=== PATIENT | female | born 1990 | race Caucasian/White ===

== ENCOUNTER 2019-12-31 12:00 | Inpatient (IN) ==
[2019-12-31] MEDS ORDERED: Metoclopramide 10 MG/2 ML VIAL IVP PRN (12:21)
[2019-12-31] MEDS ORDERED: Naloxone 0.4 MG/ML INJ IVP PRN (12:21)
[2019-12-31] MEDS ORDERED: Lidocaine 1% 20 ML MDV INFILT PRN (12:21)
[2019-12-31] MEDS ORDERED: Azithromycin 500 MG in 0.9 % Sodium Chloride 250 ML IVPB ONE (12:21)
[2019-12-31] MEDS ORDERED: *HR* FentaNYL (PF) 100 MCG/2 ML VIAL IVP PRN (12:21)
[2019-12-31] MEDS ORDERED: Famotidine 20 MG/2 ML VIAL IVP PRN (12:21)
[2019-12-31] MEDS ORDERED: Oxytocin 20 units/ LR 1000 mL 20 UNIT/1,000 ML BAG IVC SCH (12:30)
[2019-12-31 13:15] LABS: Basophils % 0.2 %; Eosinophils # 0.1 K/mcL (0.0-0.6); Eosinophils % 0.8 %; Hematocrit 37.5 % (35.3-44.9); Hemoglobin 12.2 g/dL (11.5-15.4); Immature Granulocytes % 0.8 % (0-4); Lymphocytes # 1.6 K/mcL (0.6-4.6); Lymphocytes % 19.2 %; Mean Corpuscular HGB Conc 32.5 g/dL (31.6-35.5); Mean Corpuscular Hemoglobin 28.6 pg (28.0-33.3); Mean Platelet Volume 10.3 fL (9.4-12.4); Monocytes # 0.9 K/mcL (0.0-1.3); Monocytes % 10.8 %; Neutrophils # 5.8 K/mcL (1.6-8.9); Platelet Count 234 K/mcL (140-400); Red Blood Count 4.26 M/mcL (3.82-4.97); Segmented Neutrophils % 68.2 %; White Blood Count 8.5 K/mcL (4.3-11.1)
[2019-12-31 13:27] LABS: Amphetamine Screen,Urine Negative ng/mL (Cutoff=1000); Barbiturate Screen,Urine Negative ng/mL (Cutoff=200); Benzodiazepines Screen,Urine Negative ng/mL (Cutoff=200); Cannabinoid Screen,Urine Negative ng/mL (Cutoff = 50); Cocaine Screen,Urine Negative ng/mL (Cutoff= 300); Opiate Screen,Urine Negative ng/mL (Cutoff=300); Phencyclidine Screen,Urine Negative ng/mL (Cutoff=25)
[2019-12-31] MEDS: Ringers Solution, Lactated 1,000 ML IVC SCH ×2 (13:35→14:43)
[2019-12-31] MEDS ORDERED: EPHEDrine 50 MG/ML VIAL IVP PRN (14:03)
[2019-12-31] MEDS ORDERED: Bupivacaine-MPF 0.25% 10 ML VIAL EP ONE (14:03)
[2019-12-31] MEDS ORDERED: *HR* FentaNYL (PF) 100 MCG/2 ML VIAL EP ONE (14:03)
[2019-12-31] MEDS ORDERED: Epidural Premix (fent/bupiv) 110 ML EP ONE (14:08)
[2019-12-31] MEDS ORDERED: Epidural Premix (fent/bupiv) 110 ML EP SCH (14:15)
[2019-12-31] MEDS: Ondansetron 4 MG/2 ML VIAL IVP PRN ×2 (15:40→23:41)
[2020-01-01] MEDS ORDERED: Lidocaine/EPI 1:200k 2% PF 20 ML VIAL ONE (00:31)
[2020-01-01] MEDS ORDERED: *HR* FentaNYL (PF) 100 MCG/2 ML VIAL ONE (01:20)
[2020-01-01] MEDS ORDERED: Ringers Solution, Lactated 1,000 ML ONE (01:23)
[2020-01-01] MEDS ORDERED: Ondansetron 4 MG/2 ML VIAL ONE (01:23)
[2020-01-01] MEDS ORDERED: *HR* Oxytocin 10 UNIT/ML VIAL IM ONE (01:27)
[2020-01-01] MEDS ORDERED: *HR* Morphine Sulfate/PF 10 MG/10 ML AMPUL ONE (01:45)
[2020-01-01] MEDS ORDERED: *HR* Promethazine 25 MG/ML VIAL IVP PRN (01:52)
[2020-01-01] MEDS ORDERED: Acetaminophen IV 1,000 MG/100 ML INFUS..BTL IVPB ONE (01:52)
[2020-01-01] MEDS ORDERED: Naloxone 0.4 MG/ML INJ IVP PRN (01:52)
[2020-01-01] MEDS ORDERED: *HR* HYDROmorphone PF 0.5 MG/0.5 ML SYRINGE IVP PRN (01:52)
[2020-01-01] MEDS ORDERED: Simethicone 80 MG TAB.CHEW PO PRN (04:36)
[2020-01-01] MEDS ORDERED: Ondansetron 4 MG/2 ML VIAL IVP PRN (04:36)
[2020-01-01] MEDS ORDERED: Metoclopramide 10 MG/2 ML VIAL IVP PRN (04:36)
[2020-01-01] MEDS ORDERED: Oxytocin 20 units/ LR 1000 mL 20 UNIT/1,000 ML BAG IVC SCH (04:36)
[2020-01-01] MEDS ORDERED: Azithromycin 1,000 MG in 0.9 % Sodium Chloride 250 ML IVPB ONE (04:36)
[2020-01-01] MEDS ORDERED: Sennosides 8.6 MG TABLET PO PRN (04:36)
[2020-01-01] MEDS: *HR* OxyCODONE/APAP 5/325 TABLET PO PRN ×4 (05:33→23:07)
[2020-01-01] MEDS: cefOXitin 2,000 MG in Water for inj. (sterile) 20 ML IVP SCH ×3 (07:55→23:51)
[2020-01-01] MEDS: MetroNIDAZOLE 500 MG/100 ML 500 MG/100 ML BAG IVPB SCH ×3 (07:56→23:52)
[2020-01-01] MEDS: Ibuprofen 600 MG TABLET PO PRN ×2 (09:49→20:09)
[2020-01-01] MEDS: Ringers Solution, Lactated 1,000 ML IVC SCH (14:34)
[2020-01-02] MEDS: *HR* OxyCODONE/APAP 5/325 TABLET PO PRN ×3 (07:32→19:44)
[2020-01-02] MEDS: MetroNIDAZOLE 500 MG/100 ML 500 MG/100 ML BAG IVPB SCH (07:32)
[2020-01-02] MEDS: Prenatal Vit/FA 1 EACH TABLET PO SCH (07:32)
[2020-01-02 08:08] LABS: Basophils # 0.1 K/mcL (0.0-0.2); Basophils % 0.5 %; Eosinophils # 0.2 K/mcL (0.0-0.6); Eosinophils % 1.6 %; Immature Granulocytes % 0.7 % (0-4); Lymphocytes # 1.3 K/mcL (0.6-4.6); Mean Corpuscular HGB Conc 32.3 g/dL (31.6-35.5); Mean Corpuscular Hemoglobin 29.3 pg (28.0-33.3); Mean Corpuscular Volume 90.6 fL (83.0-100.0); Mean Platelet Volume 10.4 fL (9.4-12.4); Monocytes % 7.9 %; Neutrophils # 9.5 K/mcL (1.6-8.9); Platelet Count 220 K/mcL (140-400); Red Blood Count 3.31 M/mcL (3.82-4.97); Red Cell Distribution Width 14.1 % (11.5-14.5); Segmented Neutrophils % 78.3 %; White Blood Count 12.2 K/mcL (4.3-11.1)
[2020-01-02 08:09] LABS: Hemoglobin 9.7 g/dL (11.5-15.4)
[2020-01-02] MEDS: Ibuprofen 600 MG TABLET PO PRN ×2 (09:39→16:06)
[2020-01-03] MEDS: *HR* OxyCODONE/APAP 5/325 TABLET PO PRN ×2 (01:42→09:26)
[2020-01-03] MEDS: Ibuprofen 600 MG TABLET PO PRN (07:37)
[2020-01-03] MEDS: Prenatal Vit/FA 1 EACH TABLET PO SCH (07:38)
[2020-01-03 07:44] VITALS: BP 125/82
== END 2020-01-03 11:15 | disposition home or self-care (01) ==
LOC: 1NENULAB 12:12 → 1NENUOBS 01-01 04:48
PROVIDERS: ADMIT Obstetrics & Gynecology; ATTEND Obstetrics & Gynecology

== ENCOUNTER → 2021-07-20 19:19 | Observation (INO) | END | disposition home or self-care (01) | LOC: 1NENULAB | PROVIDERS: ADMIT Obstetrics & Gynecology; ATTEND Obstetrics & Gynecology ==

== ENCOUNTER 2021-07-24 05:07 | Inpatient (IN) ==
[2021-07-24] MEDS ORDERED: CeFAZolin 2,000 MG/120 ML BAG IVPB ONE (05:31)
[2021-07-24] MEDS ORDERED: Oxytocin 20 units/ LR 1000 mL 20 UNIT/1,000 ML BAG IVC ONE (05:31)
[2021-07-24] MEDS ORDERED: Azithromycin 500 MG in 0.9 % Sodium Chloride 250 ML IVPB PRN (05:31)
[2021-07-24] MEDS ORDERED: Famotidine 20 MG/2 ML VIAL IVP ONE (05:31)
[2021-07-24] MEDS ORDERED: Metoclopramide 10 MG/2 ML VIAL IVP ONE (05:31)
[2021-07-24] MEDS ORDERED: Ringers Solution, Lactated 1,000 ML IVC ONE (05:31)
[2021-07-24] MEDS ORDERED: Oxytocin 20 units/ LR 1000 mL 20 UNIT/1,000 ML BAG IVC SCH ×3 (05:45→11:27)
[2021-07-24] MEDS ORDERED: Ringers Solution, Lactated 1,000 ML IVC SCH ×2 (05:45→11:27)
[2021-07-24 05:54] LABS: Basophils % 0.5 %; Eosinophils # 0.1 K/mcL (0.0-0.6); Eosinophils % 1.4 %; Hematocrit 36.3 % (35.3-44.9); Hemoglobin 11.7 g/dL (11.5-15.4); Immature Granulocytes % 0.8 % (0-4); Lymphocytes # 1.7 K/mcL (0.6-4.6); Lymphocytes % 19.4 %; Mean Corpuscular HGB Conc 32.2 g/dL (31.6-35.5); Mean Corpuscular Hemoglobin 28.5 pg (28.0-33.3); Mean Corpuscular Volume 88.5 fL (83.0-100.0); Monocytes # 0.8 K/mcL (0.0-1.3); Monocytes % 9.8 %; Neutrophils # 5.8 K/mcL (1.6-8.9); Platelet Count 190 K/mcL (140-400); Red Cell Distribution Width 14.4 % (11.5-14.5); Segmented Neutrophils % 68.1 %; White Blood Count 8.5 K/mcL (4.3-11.1)
[2021-07-24 06:31] LABS: Influenza A PCR Negative (Negative); Influenza B PCR Negative (Negative); Resp. Syncytial Virus PCR Negative (Negative)
[2021-07-24 06:33] LABS: SARS-CoV-2 by PCR (In House) Negative (Negative)
[2021-07-24] MEDS ORDERED: *HR* FentaNYL (PF) 100 MCG/2 ML VIAL ONE (07:29)
[2021-07-24] MEDS ORDERED: *HR* Morphine Sulfate/PF 10 MG/10 ML AMPUL ONE (07:29)
[2021-07-24] MEDS ORDERED: EPHEDrine 50 MG/ML VIAL ONE (07:31)
[2021-07-24] MEDS ORDERED: Acetaminophen IV 1,000 MG/100 ML BAG IVPB ONE (07:32)
[2021-07-24] MEDS ORDERED: Ketorolac 30 MG/ML VIAL ONE (07:32)
[2021-07-24] MEDS ORDERED: Ondansetron 4 MG/2 ML VIAL ONE (07:32)
[2021-07-24] MEDS ORDERED: Naloxone 0.4 MG/ML INJ IVP PRN (07:46)
[2021-07-24] MEDS ORDERED: Ondansetron 4 MG/2 ML VIAL IVP PRN ×2 (07:46→11:27)
[2021-07-24] MEDS ORDERED: *HR* FentaNYL (PF) 100 MCG/2 ML VIAL IVP PRN (07:46)
[2021-07-24 08:43] LABS: Amphetamine Screen,Urine Negative ng/mL (Cutoff=1000); Barbiturate Screen,Urine Negative ng/mL (Cutoff=200); Benzodiazepines Screen,Urine Negative ng/mL (Cutoff=200); Cannabinoid Screen,Urine Negative ng/mL (Cutoff = 50); Cocaine Screen,Urine Negative ng/mL (Cutoff= 300); Opiate Screen,Urine Negative ng/mL (Cutoff=300); Phencyclidine Screen,Urine Negative ng/mL (Cutoff=25)
[2021-07-24] MEDS ORDERED: Simethicone 80 MG TAB.CHEW PO PRN (11:27)
[2021-07-24] MEDS ORDERED: NON-FORMULARY MEDICATION 1 EACH EACH (Prenat 115/Iron Fum/Folic/Dss [Prenatal 19 Tablet] 1 PO SCH (11:27)
[2021-07-24] MEDS ORDERED: Metoclopramide 10 MG/2 ML VIAL IVP PRN (11:27)
[2021-07-24] MEDS ORDERED: Rho Immune Globulin 1,500 UNIT SYRINGE IM ONE (11:27)
[2021-07-24] MEDS ORDERED: Prenatal Vit/FA 1 EACH TABLET PO SCH (11:27)
[2021-07-24] MEDS: Ibuprofen 600 MG TABLET PO SCH ×2 (12:34→18:37)
[2021-07-24] MEDS: Acetaminophen 325 MG TABLET PO SCH ×2 (12:35→18:37)
[2021-07-24] MEDS: *HR* OxyCODONE/APAP 5/325 TABLET PO PRN (21:40)
[2021-07-25] MEDS: Ibuprofen 600 MG TABLET PO SCH ×2 (00:31→10:08)
[2021-07-25] MEDS: *HR* OxyCODONE/APAP 5/325 TABLET PO PRN ×2 (04:03→08:13)
[2021-07-25 07:44] LABS: Basophils % 0.4 %; Eosinophils # 0.1 K/mcL (0.0-0.6); Hematocrit 31.8 % (35.3-44.9); Hemoglobin 10.3 g/dL (11.5-15.4); Immature Granulocytes % 0.7 % (0-4); Lymphocytes # 1.9 K/mcL (0.6-4.6); Lymphocytes % 19.1 %; Mean Corpuscular HGB Conc 32.4 g/dL (31.6-35.5); Mean Corpuscular Hemoglobin 28.9 pg (28.0-33.3); Mean Corpuscular Volume 89.1 fL (83.0-100.0); Monocytes # 0.8 K/mcL (0.0-1.3); Monocytes % 8.7 %; Neutrophils # 6.8 K/mcL (1.6-8.9); Platelet Count 200 K/mcL (140-400); Red Blood Count 3.57 M/mcL (3.82-4.97); Red Cell Distribution Width 14.3 % (11.5-14.5); Segmented Neutrophils % 70.1 %; White Blood Count 9.7 K/mcL (4.3-11.1)
[2021-07-25 07:47] VITALS: BP 107/71; PULSE 73; TEMP 98.2; O2SAT 96
== END 2021-07-25 11:30 | disposition home or self-care (01) | DRG 540 ==
LOC: 1NENULAB 05:07 → 1NENUOBS 11:12
PROVIDERS: ADMIT Student in an Organized Health Care Education/Training Program; ATTEND Student in an Organized Health Care Education/Training Program